=== PATIENT | male | born 1950 | race Caucasian/White ===

== ENCOUNTER 2019-02-28 16:15 | Emergency (ER) | payer OTHER | END 2019-02-28 18:59 | disposition home or self-care (01) | LOC: JER 16:15 ==

== ENCOUNTER 2019-03-07 20:06 | Emergency (ER) | payer OTHER | END 2019-03-08 02:55 | disposition home or self-care (01) | LOC: JER 03-08 02:55 | PROC: 0TWB70Z Revision of Drainage Device in Bladder, Via Natural or Artificial Opening (ICD-10-PCS; principal; 2019-03-07) | PROC: 3E03329 Introduction of Other Anti-infective into Peripheral Vein, Percutaneous Approach (ICD-10-PCS; 2019-03-07) | PROC: 3E033NZ Introduction of Analgesics, Hypnotics, Sedatives into Peripheral Vein, Percutaneous Approach (ICD-10-PCS; 2019-03-07) | PROC: 3E033GC Introduction of Other Therapeutic Substance into Peripheral Vein, Percutaneous Approach (ICD-10-PCS; 2019-03-07) | PROC: 3E033GC Introduction of Other Therapeutic Substance into Peripheral Vein, Percutaneous Approach (ICD-10-PCS; 2019-03-07) | DX: T83.511A Infection and inflammatory reaction due to indwelling urethral catheter, initial encounter (principal); N39.0 Urinary tract infection, site not specified; R31.9 Hematuria, unspecified; R80.9 Proteinuria, unspecified; Y73.8 Miscellaneous gastroenterology and urology devices associated with adverse incidents, not elsewhere classified; Y92.018 Other place in single-family (private) house as the place of occurrence of the external cause ==

== ENCOUNTER 2020-10-27 17:11 | Emergency (ER) | payer OTHER ==
[2020-10-27 17:33] VITALS: BP 139/94; PULSE 97; TEMP 100.8; BMI 21.1
[2020-10-27] MEDS ORDERED: LACTATED RINGERS SOLUTION 1000 ML INFUS.BAG IV ONE (17:34)
[2020-10-27] MEDS ORDERED: ACETAMINOPHEN 1000 MG/100 ML VIAL (NON FORMULARY) IVPB ONE (17:34)
[2020-10-27 18:23] LABS: MCH 31.8 pg (25.7-33.7)
[2020-10-27 18:26] LABS: BASO % 2.9 % (0-2.0); EOS % 0.2 % (0-4.5); HEMATOCRIT 46.7 % (35.4-49); LYMPH % 4.7 % (8-40); MCHC 34.3 g/dl (32.0-35.9); MEAN CELL VOLUME 92.7 fl (80-96); MEAN PLT VOLUME 9.8 fl (7.5-11.1); MONO % 5.6 % (3.8-10.2); NEUT % 86.6 % (42.8-82.8); PLATELET COUNT 211 K/MM3 (134-434); RBC 5.04 M/mm3 (4.00-5.60); RDW 11.9 % (11.9-15.9); WHITE BLOOD COUNT 17.3 K/mm3 (4.0-10.8)
[2020-10-27 18:32] LABS: ALBUMIN 3.7 g/dl (3.4-5.0); CALCIUM 7.8 mg/dl (8.5-10); POTASSIUM 3.6 mmol/L (3.5-5.1); TOT PROT 5.7 g/dl (6.4-8.2)
[2020-10-27] MEDS ORDERED: ACETAMINOPHEN INJECTION 100 ML IVPB ONE (18:36)
[2020-10-27 18:41] LABS: ACTIVATED PTT 25.8 SECONDS (25.2-36.5)
[2020-10-27 18:45] LABS: INR 1.49 (0.82-1.09); PROTHROMBIN TIME (PATIENT) 16.3 SEC (10.2-13.0)
[2020-10-27 18:51] LABS: EPITHELIAL CELLS RARE /hpf
== END 2020-10-27 20:41 | disposition home or self-care (01) ==
LOC: FER 17:11
PROC: 3E0333Z Introduction of Anti-inflammatory into Peripheral Vein, Percutaneous Approach (ICD-10-PCS; principal; 2020-10-27)
DX: D72.829 Elevated white blood cell count, unspecified (principal)
CPT/HCPCS: 36415; 71045-TC-FY; 74177-TC; 80053; 81003; 81015; 83690; 85025; 85610; 85730; 87040; 99285-25; C9803; J0131; Q9967; U0003